=== PATIENT | male | born 1955 | race African-American/Black ===

== ENCOUNTER 2025-06-20 08:50 | Emergency (ER) | payer MEDICAID, OTHER ==
[~2025-06-20] VITALS: Ht 165.1 cm; Wt 59.5 kg
--- NOTE | 2025-06-20 10:30 | ED.PDOC ---
History of Present Illness(SKN HPI Comments 69 y/o M with no prior medical history, presents to the ED for CC of facial growth. Patient reports, he has had a large facial mass that has now double in size x1year. Patient relays, that he has not seen a physician or seeked medical attention since, growth developed. Patient has a large fluncutate mass to his left lateral jaw that appears swollen and erythematous. Patient denies pain, poor appetite, fever, fatigue, or pruritus. No other symptoms or modifying factors are present at this time. Chief Complaint: Wound Check Time Seen by MD: 10:20 History of Present Illness: Nurses Notes, Medications, Allergies Allergies: Coded Allergies: NO KNOWN ALLERGIES (Unverified , 06/20/25) Information Source: Patient Mode of Arrival: Ambulatory Severity: Moderate Timing: Months Duration: Since onset Prehospital treatment: None Location: Face Mechanism: Spontaneous Onset Object: None Condition of Object: None Retained Foreign Body: No Wound Type: None Immunization Status of Animal: NA Tetanus: Unknown History of: None Associated Signs and Symptoms: Redness, Swelling Past Medical History PAST MEDICAL HISTORY: Denies Surgical History: Denies all surgeries Family History Family History: Unknown Social History Smoker: Non-Smoker Alcohol: Denies ETOH Use Drugs: Denies Drug Use Lives In: Home Constitutional: denies: chills, diaphoresis, fatigue, fever, malaise, sweats, weakness, others EENTM: denies: blurred vision, double vision, ear bleeding, ear discharge, ear drainage, ear pain, ear ringing, eye pain, eye redness, hearing loss, mouth pain, mouth swelling, nasal discharge, nose bleeding, nose congestion, nose pain, photophobia, tearing, throat pain, throat swelling, voice changes, others Respiratory: denies: cough, hemoptysis, orthopnea, SOB at rest, shortness of breath, SOB with excertion, stridor, wheezing, others Cardiovascular: denies: chest pain, dizzy spells, diaphoresis, Dyspnea on exertion, edema, irregular heart beat, left arm pain, lightheadedness, palpitations, PND, syncope, others Gastrointestinal: denies: abdomen distended, abdominal pain, blood streaked bowels, constipated, diarrhea, dysphagia, difficulty swallowing, hematemesis, melena, nausea, poor appetite, poor fluid intake, rectal bleeding, rectal pain, vomiting, others Genitourinary: denies: burning, dysuria, flank pain, frequency, hematuria, incontinence, penile discharge, penile sore, pain, testicle pain, testicle swelling, urgency, others Neurological: denies: dizziness, fainting, headache, left sided numbness, left sided weakness, numbness, paresthesia, pre-existing deficit, right sided numbness, right sided weakness, seizure, speech problems, tingling, tremors, weakness, others Musculoskeletal: denies: back pain, gout, joint pain, joint swelling, muscle pain, muscle stiffness, neck pain, others Integumetry: denies: bruises, change in color, change in hair/nails, dryness, laceration, lesions, lumps, rash, wounds, others Allergic/Immunocompromised: denies: Difficulty Healing, Frequent Infections, Hives, Itching, others Hematologic/Lymphatic: denies: anemia, blood clots, easy bleeding, easy bruising, swollen glands, others Endocrine: denies: excessive hunger, excessive sweating, excessive thirst, excessive urination, flushing, intolerance to cold, intolerance to heat, unexplained weight gain, unexplained weight loss, others Psychiatric: denies: anxiety, bipolar disorder, depression, hopeless, panic disorder, schizophrenia, sleepless, suicidal, others All Other Systems: Reviewed and Negative Physical Exam General Appearance: Normal, Other (disheveleved ) HEENT: Normal ENT Inspection, Pharynx Normal Neck: Full Range of Motion, Non-Tender, Normal, Normal Inspection Respiratory: Chest Non-Tender, Lungs Clear, No Accessory Muscle Use, No Respiratory Distress, Normal Breath Sounds Cardiovascular: No Edema, No Murmur, No Gallop, Normal Peripheral Pulses, Regular Rate/Rhythm Breast Exam: Deferred Gastrointestinal: No Organomegaly, Non Tender, No Pulsatile Mass, Normal Bowel Sounds, Soft Genitalia: Deferred Pelvic: Deferred Rectal: Deferred Extremities: No calf tenderness, Normal capillary refill, Normal inspection, Normal range of motion, Non-tender, No pedal edema Musculoskeletal : Apperance: Normal Neurologic: Alert, tube rebuilder II-XII nml as Tested, No Motor Deficits, Normal Affect, Normal Mood, No Sensory Deficits Cerebellar Function: Normal Reflexes: Normal Skin: Other (large fluncutate mass to the left lateral jaw) Lymphatic: No Adenopathy Was a procedure done? Was a procedure done?: No Differential Diagnosis (INTG) Differential Diagnosis: Cellulitis, Other (basal cell carcinoma, squamous cell carcinoma ) X-Ray, Labs, Meds, VS Vital Signs Date Time Temp Pulse Resp B/P (MAP) Pulse Ox O2 Delivery O2 Flow Rate FiO2 06/20/25 11:26 98.6 84 20 147/90 (109) 97 98.6 06/20/25 09:00 98.1 76 18 138/62 98 98.1 Lab Test 06/20/25 10:31 Range/Units White Blood Count 10.3 4.4-10.8 10^3/uL Red Blood Count 4.97 4.5-5.90 10^6/uL Hemoglobin 14.9 13.5-17.5 g/dL Hematocrit 44.2 41.0-53.0 % Mean Corpuscular Volume 89.0 80.0-100.0 fL Mean Corpuscular Hemoglobin 29.9 28.0-32.0 pg Mean Corpuscular Hemoglobin Concent 33.7 32.0-36.0 g/dL Red Cell Distribution Width 13.6 11.8-14.3 % Platelet Count 307 140-450 10^3/uL Mean Platelet Volume 7.8 6.9-10.8 fL Neutrophils (%) (Auto) 62.9 37.0-80.0 % Lymphocytes (%) (Auto) 23.7 10.0-50.0 % Monocytes (%) (Auto) 10.2 0.0-12.0 % Eosinophils (%) (Auto) 2.5 0.0-7.0 % Basophils (%) (Auto) 0.7 0.0-2.0 % Neutrophils # (Auto) 6.5 1.6-8.6 10 ^3/uL Lymphocytes # (Auto) 2.5 0.4-5.4 10 ^3/uL Monocytes # (Auto) 1.1 0-1.3 10 ^3/uL Eosinophils # (Auto) 0.3 0-0.8 10 ^3/uL Basophils # (Auto) 0.1 0-0.2 10 ^3/uL Nucleated Red Blood Cells 0.0 % Sodium Level 134 L 136-145 mmol/L Potassium Level 4.2 3.5-5.1 mmol/L Chloride Level 98 98-107 mmol/L Carbon Dioxide Level 28 20-31 mmol/L Anion Gap 8 5-15 Blood Urea Nitrogen 20 9-23 mg/dL Creatinine 1.27 0.700-1.30 mg/dL Glomerular Filtration Rate Calc 62 >90 mL/min BUN/Creatinine Ratio 15.7 10.0-20.0 Serum Glucose 108 H 74-106 mg/dL Calcium Level 9.4 8.7-10.4 mg/dL [place] [address] Ph: [phone] DIAGNOSTIC IMAGING Diagnostic Imaging Report : [id number] Signed PATIENT: SEBASTIÁN PHAM ACCT: [id number] UNIT: [id number] : 1955 LOC: ER ROOM / BED: / AGE / SEX: 69 / M ADM STATUS: REG ER SERVICE 1021 ORDERING PHYSICIAN: FADY ADKINS MD PROCEDURE(s): FACIC - MAXILLOFACIAL WITH REASON: left jaw mass c/f malignancy ORDER NUMBER(s): [id number], ACCESSION NUMBER(s): [id number] HISTORY: left jaw mass c/f malignancy TECHNIQUE: Nonenhanced axial images through the facial bones with coronal and sagittal MPR. Radiation Dose Information: CT Dose: CTDI volume is 64 mGy. Dose-length product is 1398.98 mGy*cm COMPARISON: None FINDINGS: Mandible: Unremarkable Maxilla: Unremarkable Zygomatic arches: Unremarkable Nasal bone: Unremarkable Orbits: Unremarkable Sinuses: Clear Facial swelling: None Left maxillary superficial subcutaneous soft-tissue: Possible sebaceous cyst, measuring 0.7 cm. Parotid gland: Diffuse infiltrative centrally necrotic mass, possibly originating at the anterior aspect, measuring 6.1 x 5.7 cm. Neck: Associated adjacent upper cervical lymphadenopathy. IMPRESSION: Diffuse infiltrative centrally necrotic mass, possibly originating at the anterior aspect of the left parotid gland, measuring 6.1 x 5.7 cm. Associated adjacent upper cervical lymphadenopathy. Recommendation: Ultrasound-guided biopsy could be considered to further evaluate if clinically indicated. ATED BY: JUSTYN HOOKER MD DICTATED DATE/TIME: 06/20/251204 SIGNED BY: JUSTYN HOOKER MD SIGNED DATE/TIME: 09/25/25 1205 CC: Time of 1ST Reevaluation: 10:50 Reevaluation 1ST: Unchanged Patient Education/Counseling: Diagnosis, Treatment Family Education/Counseling: Diagnosis, Treatment SEPSIS Sepsis Screen Date sepsis recognized/suspect: Jun 20, 2025 Time Sepsis recognized/suspect: 09 Recent Procedure: No On Antibiotic Therapy: No Respiratory Rate >20: No Heart Rate >90: No Temp<36 C (96.8 F) or >38.3 C: No SBP <90 or MAP <65 mmHG: No New Acute Mental Status Change: No Is the patient on CPAP, BIPAP,: No Physician Orders Maxillofacial With (06/20/25 10:21) Vital Signs Date Time Temp Pulse Resp B/P (MAP) Pulse Ox O2 Delivery O2 Flow Rate FiO2 06/20/25 11:26 98.6 84 20 147/90 (109) 97 98.6 06/20/25 09:00 98.1 76 18 138/62 98 98.1 Laboratory Tests Test 06/20/25 10:31 White Blood Count 10.3 10^3/uL (4.4-10.8) Departure 1 Departure Time of Disposition: 12:53 (Patient with concern for new malignancy crying on the side of the size. Given patient's very low health literacy in poor follow up we will admit patient for expedited workup , ultrasound-guided biopsy and expert consultation) Impression: Primary Impression: Facial mass Disposition: ADMITTED INPATIENT Admit to: Med Surg Condition: Serious Critical Care Note Critical Care Time?: No Stability Stability form required: No Heart Score Heart Score: Heart Score Response (Comments) Value History N/A 0 EKG N/A 0 Age N/A 0 Risk Factors N/A 0 Troponin N/A 0 Total 0 I personally scribed for FADY ADKINS MD ([email or web address]) on 06/20/25 at 10:30. Electronically submitted by Lillian Samaniego ([email or web address]). I personally scribed for FADY ADKINS MD ([email or web address]) on 06/20/25 at 12:35. Electronically submitted by Lillian Samaniego ([email or web address]). FADY ADKINS MD Jun 20, 2025 10:30
[2025-06-20 10:50] LABS: Hematocrit 44.2 % (41.0-53.0); Hemoglobin 14.9 g/dL (13.5-17.5); Mean Corpuscular Hemoglobin 29.9 pg (28.0-32.0); Mean Corpuscular Volume 89.0 fL (80.0-100.0); Nucleated Red Blood Cells % 0.0 %
[2025-06-20 10:57] LABS: Chloride 98 mmol/L (98-107); Potassium 4.2 mmol/L (3.5-5.1)
[2025-06-20 10:58] LABS: Anion Gap 8 (5-15); Calcium 9.4 mg/dL (8.7-10.4); Carbon Dioxide 28 mmol/L (20-31)
[2025-06-20 11:02] LABS: Sodium 134 mmol/L (136-145)
[2025-06-20 11:03] LABS: BUN/Creatinine Ratio 15.7 (10.0-20.0); Blood Urea Nitrogen 20 mg/dL (9-23)
[2025-06-20 11:06] LABS: Glucose 108 mg/dL (74-106)
[2025-06-20] MEDS: IOHEXOL 300 MG/ML 100ML BOTTLE IJ ONE (11:31)
--- NOTE | 2025-06-20 12:07 | DVH ---
HISTORY: left jaw mass c/f malignancy TECHNIQUE: Nonenhanced axial images through the facial bones with coronal and sagittal MPR. Radiation Dose Information: CT Dose: CTDI volume is 64 mGy. Dose-length product is 1398.98 mGy*cm COMPARISON: None FINDINGS: Mandible: Unremarkable Maxilla: Unremarkable Zygomatic arches: Unremarkable Nasal bone: Unremarkable Orbits: Unremarkable Sinuses: Clear Facial swelling: None Left maxillary superficial subcutaneous soft-tissue: Possible sebaceous cyst, measuring 0.7 cm. Parotid gland: Diffuse infiltrative centrally necrotic mass, possibly originating at the anterior asp ect, measuring 6.1 x 5.7 cm. Neck: Associated adjacent upper cervical lymphadenopathy. IMPRESSION: Diffuse infiltrative centrally necrotic mass, possibly originating at the anterior aspect of the left parotid gland, measuring 6.1 x 5.7 cm. Associated adjacent upper cervical lymphadenopathy. Recommend ation: Ultrasound-guided biopsy could be considered to further evaluate if clinically indicated.
--- NOTE | 2025-06-20 14:28 | ED.PDOC ---
Departure 1 Departure Time of Disposition: 14:25 (Patient is hemodynamically stable and we did IV and T is this hospital. We will discharge patient home with the ENT follow up.) Impression: Primary Impression: Facial mass Disposition: HOME / SELF CARE / HOMELESS Condition: Stable Additional Instructions: You have a large facial mass that may be cancer. It is important to follow up with an ear nose and throat surgeon. Please call [phone] to follow up with [address] Jesus El at [facility] in [facility]. For pain you can take the followinam: Ibuprofen 400mg with food Noon: Acetaminophen 1000mg 4pm: Ibuprofen 400mg with food 8pm: Acetaminophen 1000mg You should follow up with your regular doctor within one week to ensure you are doing better. If your symptoms worsen or you have any other concerns then please return to the ER. Discharged With: FADY Taveras MD Jun 20, 2025 14:28
--- NOTE | 2025-06-20 14:33 | DVHINCON2 ---
Date Seen: Jun 20, 2025 History of Present Illness Cedric Escalera is a is a 69-year-old male with past medical history of tobacco use who presents to the ED with left-sided facial mass that has doubled in size in the last 1 year. Patient states that he has not seen a PCP for years. He also states that there has been some discomfort but not any pain. He also reports that he lives in his motor home. Also reports that his brother was supposed to pick him up from [place] but he does not have his phone number. He also reports that his is in a nursing home facility and also does not have her contact information. Spoke with Dr. Arango and patient is unable to be admitted due to no ENT at this facility. Patient denies any recent trauma or injury, recent sick contacts, recent ingestion of spoiled food, recent travels, chest pain, shortness of breath, fever, chills, lightheadedness, weakness, dizziness, abdominal pain, nausea, vomiting, diarrhea, or urinary symptoms. Allergies: Coded Allergies: NO KNOWN ALLERGIES (Unverified , 06/20/25) Vital Signs Vital Signs Date Time Temp Pulse Resp B/P (MAP) Pulse Ox O2 Delivery O2 Flow Rate FiO2 06/20/25 13:41 98.6 73 20 134/77 (96) 97 98.6 Labs/Diagnostic Data Labs Test 06/20/25 10:31 Range/Units White Blood Count 10.3 4.4-10.8 10^3/uL Red Blood Count 4.97 4.5-5.90 10^6/uL Hemoglobin 14.9 13.5-17.5 g/dL Hematocrit 44.2 41.0-53.0 % Mean Corpuscular Volume 89.0 80.0-100.0 fL Mean Corpuscular Hemoglobin 29.9 28.0-32.0 pg Mean Corpuscular Hemoglobin Concent 33.7 32.0-36.0 g/dL Red Cell Distribution Width 13.6 11.8-14.3 % Platelet Count 307 140-450 10^3/uL Mean Platelet Volume 7.8 6.9-10.8 fL Neutrophils (%) (Auto) 62.9 37.0-80.0 % Lymphocytes (%) (Auto) 23.7 10.0-50.0 % Monocytes (%) (Auto) 10.2 0.0-12.0 % Eosinophils (%) (Auto) 2.5 0.0-7.0 % Basophils (%) (Auto) 0.7 0.0-2.0 % Neutrophils # (Auto) 6.5 1.6-8.6 10 ^3/uL Lymphocytes # (Auto) 2.5 0.4-5.4 10 ^3/uL Monocytes # (Auto) 1.1 0-1.3 10 ^3/uL Eosinophils # (Auto) 0.3 0-0.8 10 ^3/uL Basophils # (Auto) 0.1 0-0.2 10 ^3/uL Nucleated Red Blood Cells 0.0 % Sodium Level 134 L 136-145 mmol/L Potassium Level 4.2 3.5-5.1 mmol/L Chloride Level 98 98-107 mmol/L Carbon Dioxide Level 28 20-31 mmol/L Anion Gap 8 5-15 Blood Urea Nitrogen 20 9-23 mg/dL Creatinine 1.27 0.700-1.30 mg/dL Glomerular Filtration Rate Calc 62 >90 mL/min BUN/Creatinine Ratio 15.7 10.0-20.0 Serum Glucose 108 H 74-106 mg/dL Calcium Level 9.4 8.7-10.4 mg/dL HISTORY: left jaw mass c/f malignancy TECHNIQUE: Nonenhanced axial images through the facial bones with coronal and sagittal MPR. Radiation Dose Information: CT Dose: CTDI volume is 64 mGy. Dose-length product is 1398.98 mGy*cm COMPARISON: None FINDINGS: Mandible: Unremarkable Maxilla: Unremarkable Zygomatic arches: Unremarkable Nasal bone: Unremarkable Orbits: Unremarkable Sinuses: Clear Facial swelling: None Left maxillary superficial subcutaneous soft-tissue: Possible sebaceous cyst, measuring 0.7 cm. Parotid gland: Diffuse infiltrative centrally necrotic mass, possibly originating at the anterior aspect, measuring 6.1 x 5.7 cm. Neck: Associated adjacent upper cervical lymphadenopathy. IMPRESSION: Diffuse infiltrative centrally necrotic mass, possibly originating at the anterior aspect of the left parotid gland, measuring 6.1 x 5.7 cm. Associated adjacent upper cervical lymphadenopathy. Recommendation: Ultrasound-guided biopsy could be considered to further evaluate if clinically indicated. Assessment Assessment Large left facial mass Diffuse infiltrative centrally necrotic mass, possibly originating at the anterior aspect of the left parotid gland, measuring 6.1 x 5.7 cm Associated adjacent upper cervical lymphadenopathy Tobacco use Discussed with ED doctor that we are unable to admit this patient as we did not have an ENT at this facility. Counseled patient on cessation of tobacco use [id number] Behavior change smoking greater than 10 minutes about use of other options also gave option of nicotine patch 34630 Preventive counseling healthy eating habits, physical activity, and regular checkups Plan discussed with: Patient Date of Service: Jun 20, 2025 Billing Provider: ROSEMAIRE MONTES Common Visit Codes: 21739-NOETWBT INP/OBS CARE (HIGH) Secondary Visit Codes: 32792-[id number] COUNSELING IND, 88157-NQPQZ CHNG SMOKING >10MIN ROSEMARIE MONTES Jun 20, 2025 14:33
[2025-06-20 14:55] VITALS: BP 138/84; PULSE 78; RESP 16; TEMP 97.6; O2SAT 98
== END 2025-06-20 15:00 | disposition home or self-care (01) ==
LOC: ER 08:50
DX: R22.0 Localized swelling, mass and lump, head (principal)
CPT/HCPCS: 36415; 70487; 80048; 85025; 99285; Q9967